=== PATIENT | female | born 1995 | race Caucasian/White ===

== ENCOUNTER 2020-08-13 10:30 | Emergency (ER) | payer OTHER ==
[~2020-08-13] VITALS: Ht 160 cm; Wt 110.4 kg
[2020-08-13] MEDS ORDERED: LIDOCAINE 5% (LIDODERM) PATCH TD ONE (11:30)
[2020-08-13] MEDS ORDERED: KETOROLAC 60MG 2ML VIAL IM ONE (11:30)
--- NOTE | 2020-08-13 11:50 | REP ---
INDICATION: fall. COMPARISON: None. TECHNIQUE: Helical scanning is acquired. 5 mm axial images were reformatted. Coronal MPR images were generated. FINDINGS: Bone window settings demonstrate an intact bony calvarium. There is no evidence of skull fracture or incidental bony calvarial lesion. The visualized paranasal sinuses appear clear. No intraorbital abnormality is seen. On soft tissue window setting images; the lateral, third, and fourth ventricles are normal in size and position. Mejia-white differentiation pattern is normal above and below the tentorium. There are is no evidence of intracranial hemorrhage. No mass, edema, infarction, or midline shift is seen. No extra-axial fluid collection is appreciated. IMPRESSION: Negative noncontrast head CT. <Electronically signed by Satish Fong > 08/13/20 [id number]
--- NOTE | 2020-08-13 11:52 | REP ---
INDICATION: fall. COMPARISON: None. TECHNIQUE: Helical scanning is acquired and overlapping 2 mm high resolution axial images were generated and reviewed at bone and soft tissue window settings. Coronal and sagittal multiplanar re-formations images are generated. FINDINGS: There is no evidence of cervical spine element fracture. No skull base fracture is seen. Cervical vertebral body heights are preserved. Alignment is normal. There is some straightening of the normal cervical lordosis. Facet joints are normally aligned bilaterally at each cervical level on multiplanar re-formations images. There is no evidence of intraspinal or paraspinal hematoma. No extra vertebral abnormality is seen. 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 This is well corticated and is not felt to reflect is a fracture or injury. IMPRESSION: Negative CT study of the cervical spine without contrast. No fracture seen. <Electronically signed by Satish Fong > 08/13/20 [id number]
--- NOTE | 2020-08-13 11:53 | REP ---
INDICATION: fall. COMPARISON: None. TECHNIQUE: Helical scanning is acquired and 4 mm axial images re-formatted. Coronal and sagittal MPR images are generated. FINDINGS: Lumbar vertebral body heights are preserved. Alignment is normal. No fracture or collapse is seen. No sacral fracture is noted. No paravertebral hematoma is appreciated. No intraspinal hematoma is visible. There is no evidence of spondylolysis or spondylolisthesis. IMPRESSION: Negative lumbar spine CT study. No traumatic abnormality noted. <Electronically signed by Satish Fong > 08/13/20 [id number]
--- NOTE | 2020-08-13 11:55 | REP ---
INDICATION: fall. COMPARISON: None. TECHNIQUE: Helical scanning is acquired 4 mm axial images re-formatted. Coronal and sagittal MPR images are generated. FINDINGS: Thoracic vertebral body heights are preserved. Alignment is normal. Disc spaces are maintained. Pedicles and posterior elements are intact. No fracture or subluxation is seen. Posterior ribcage appears intact. There is a ununited transverse process noted on the right at T1 as a developmental finding. Visualized lung parenchyma is unremarkable. No paraspinal hematoma is seen. IMPRESSION: Negative CT study of the thoracic spine. No fracture or other traumatic abnormality noted. <Electronically signed by Satish Fong > 08/13/20 [id number]
--- NOTE | 2020-08-13 12:44 | REP ---
INDICATION: fall with pain. COMPARISON: None. TECHNIQUE: Three views. FINDINGS: The left glenohumeral and acromioclavicular joints are normally aligned. No fracture is seen. No subluxation is noted. Periarticular soft tissues are unremarkable. The visualized left hemithorax appears intact. IMPRESSION: Negative left shoulder radiographs. <Electronically signed by Satish Fong > 08/13/20 [id number]
[2020-08-13] MEDS ORDERED: LIDO5DIS41 TOP (12:56)
[2020-08-13] MEDS ORDERED: CYCL-707 PO (12:56)
[2020-08-13 13:05] VITALS: BP 122/84
[2020-08-13] MEDS ORDERED: **NOTE PATIENT COMMENT** MISC XX SCH (21:00)
== END 2020-08-13 13:14 | disposition home or self-care (01) ==
LOC: M ED 10:30
DX: M54.2 Cervicalgia (principal); M79.604 Pain in right leg; M54.5 Low back pain; M25.512 Pain in left shoulder; G47.30 Sleep apnea, unspecified; Z88.8 Allergy status to other drugs, medicaments and biological substances; F17.210 Nicotine dependence, cigarettes, uncomplicated
CPT/HCPCS: 70450; 72125; 72128; 72131; 73030; 96372; 99284; J1885

== ENCOUNTER → 2020-10-06 | Outpatient (REF) | payer OTHER, MEDICAID ==
[~2020-10-06] MED LIST: CYCL-707 PO; LIDO5DIS41 TOP
[2020-10-06 13:59] LABS: BASO % 0.4 % (0.0-1.0); EOS # 0.5 10^3/uL (0.0-0.5); EOS % 7.3 % (0.0-3.0); HEMATOCRIT 39.9 % (36.0-47.0); HEMOGLOBIN 13.2 g/dl (12.0-15.5); LYMPH # 2.1 10^3/uL (1.5-5.0); LYMPH % 31.2 % (24.0-44.0); MEAN CORPUSCULAR HEMOGLOBIN 29.1 pg (27.0-33.0); MEAN CORPUSCULAR HGB CONC 33.1 g/dl (32.0-36.5); MEAN CORPUSCULAR VOLUME 87.9 fl (80.0-96.0); MONO # 0.6 10^3/uL (0.0-0.8); MONO % 8.8 % (0.0-5.0); NEUTROPHILS # 3.5 10^3/uL (1.5-8.5); NEUTROPHILS % 52.2 % (36.0-66.0); PLATELET COUNT, AUTOMATED 214 10^3/uL (150-450); RED BLOOD COUNT 4.54 10^6/uL (4.00-5.40); WHITE BLOOD COUNT 6.7 10^3/uL (4.0-10.0)
[2020-10-06 14:19] LABS: ALBUMIN 3.7 GM/DL (3.2-5.2); ALT/SGPT 47 U/L (12-78); BILIRUBIN,TOTAL 0.4 MG/DL (0.2-1.0); BLOOD UREA NITROGEN 8 MG/DL (7-18); CALCIUM LEVEL 9.1 MG/DL (8.5-10.1); CARBON DIOXIDE LEVEL 29 MEQ/L (21-32); CHLORIDE LEVEL 105 MEQ/L (98-107); CHOLESTEROL LEVEL 196 MG/DL (<200); CHOLESTEROL RISK RATIO 4.355 (<5); CREATININE FOR GFR 0.69 MG/DL (0.55-1.30); FERRITIN 40 NG/ML (8-252); FREE T4 0.96 NG/DL (0.76-1.46); GLOMERULAR FILTRATION RATE > 60.0 (>60); GLUCOSE, FASTING 84 MG/DL (70-100); HDL CHOLESTEROL 45 MG/DL (>40); LDL CHOLESTEROL 130 MG/DL (<100); NON-HDL-C 151 MG/DL; POTASSIUM SERUM 4.1 MEQ/L (3.5-5.1); SODIUM LEVEL 141 MEQ/L (136-145); TRIGLYCERIDES LEVEL 107 MG/DL (<150)
[2020-10-06 14:23] LABS: TOTAL 25(OH) VITAMIN D 10.3 NG/ML (30.0-100.0); VITAMIN B12 LEVEL 616 PG/ML
[2020-10-06 14:24] LABS: FOLATE 9.5 NG/ML
[2020-10-06 15:25] LABS: ERYTHROCYTE SEDIMENTATION RATE 30 mm/hr (0-20)
== END ==
LOC: M SFHCPLAZ 12:29
PROVIDERS: ATTEND Nurse Practitioner Family
DX: R51.9 Headache, unspecified (principal); E61.1 Iron deficiency; Z13.220 Encounter for screening for lipoid disorders; Z13.21 Encounter for screening for nutritional disorder

== ENCOUNTER → 2021-01-13 | Outpatient (REF) | payer OTHER, MEDICAID | LOC: M SFHCPLAZ 15:41 | PROVIDERS: ATTEND Nurse Practitioner Family | DX: E55.9 Vitamin D deficiency, unspecified (principal) ==

== ENCOUNTER → 2021-06-22 | Outpatient (CLI) | payer OTHER, MEDICAID ==
[2021-06-22 18:11] LABS: BASO % 0.3 % (0.0-1.0); EOS # 0.2 10^3/uL (0.0-0.5); EOS % 2.6 % (0.0-3.0); HEMATOCRIT 35.5 % (36.0-47.0); LYMPH # 1.8 10^3/uL (1.5-5.0); MEAN CORPUSCULAR HGB CONC 33.8 g/dl (32.0-36.5); MEAN CORPUSCULAR VOLUME 85.7 fl (80.0-96.0); MONO # 0.5 10^3/uL (0.0-0.8); MONO % 5.2 % (2.0-8.0); NEUTROPHILS # 6.4 10^3/uL (1.5-8.5); NEUTROPHILS % 71.7 % (36.0-66.0); PLATELET COUNT, AUTOMATED 189 10^3/uL (150-450); RED BLOOD COUNT 4.14 10^6/uL (4.00-5.40); WHITE BLOOD COUNT 8.9 10^3/uL (4.0-10.0)
[2021-06-22 19:28] LABS: HIV 1&2 SCREEN CENTAUR NEGATIVE (NEGATIVE)
[2021-06-22 19:57] LABS: GC DNA AMPLIFICATION NEGATIVE (NEGATIVE)
== END ==
LOC: M PLALAB 15:13
PROVIDERS: ATTEND Advanced Practice Midwife
DX: Z34.91 Encounter for supervision of normal pregnancy, unspecified, first trimester (principal)

== ENCOUNTER → 2021-07-27 | Outpatient (CLI) | payer OTHER, MEDICAID ==
--- NOTE | 2021-07-27 14:57 | REP ---
INDICATION: ANATOMY COMPARISON: None. TECHNIQUE: Transabdominal obstetrical ultrasound with color Doppler evaluation. FINDINGS: Examination demonstrates a single live intrauterine in variable presentation. motion is identified by technologist. Placenta is noted anterior and grade 0 without evidence for placenta previa or abruption. Amniotic fluid volume is normal. Cervix measures 4.4 cm in length and appears closed.. Selected gestational age: 20 weeks 2 days with IRENA 12/12/2021. Gestational age by current measurements 20 weeks 3 days with IRENA 12/11/2021. FHR equals 144 beats per minute. Estimated weight 353 grams (53rdpercentile). Anatomical assessment demonstrates normal structures including cranium, choroid plexus, cavum, cerebellum/posterior fossa, facial features, lungs, four-chamber heart/ventricular outflow tracts, diaphragm, stomach, cord insertion/three-vessel cord, kidneys/bladder, spine, and extremities. IMPRESSION: Single live intrauterine in variable presentation demonstrating appropriate estimated weight and growth. Anatomical assessment is complete and normal. <Electronically signed by Oliver Lopez > 07/27/21 [id number]
== END ==
LOC: M WHC 13:57
PROVIDERS: ATTEND Advanced Practice Midwife
DX: Z36.89 Encounter for other specified antenatal screening (principal); Z3A.20 20 weeks gestation of pregnancy